=== PATIENT | male | born 1975 | race Caucasian/White ===

== ENCOUNTER 2019-12-05 14:54 | Emergency (ER) | payer SELFPAY ==
[~2019-12-05] VITALS: Ht 185.4 cm; Wt 98.0 kg
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
[2019-12-05 16:06] VITALS: BP 110/60
== END 2019-12-05 16:19 | disposition home or self-care (01) ==
LOC: ER 14:54
DX: S70.01XA Contusion of right hip, initial encounter (principal); R00.2 Palpitations; F10.10 Alcohol abuse, uncomplicated; V49.88XA Car occupant (driver) (passenger) injured in other specified transport accidents, initial encounter; Y93.89 Activity, other specified; Y92.413 State road as the place of occurrence of the external cause; Y99.8 Other external cause status
CPT/HCPCS: 71045; 73502; 73552; 99285